=== PATIENT | male | born 1960 | race African-American/Black ===

== ENCOUNTER 2020-11-30 18:27 | Inpatient (IN) | payer MEDICAID ==
[~2020-11-30] VITALS: Ht 182.9 cm; Wt 136.1 kg
[2020-11-30] MEDS ORDERED: HYDRALAZINE 20MG/ML VIAL IV ONE ×2 (20:30→22:30)
[2020-11-30 20:58] LABS: BASOPHILS % 0.7 % (0.0-2.0); EOSINOPHILS % 2.6 % (0.0-5.0); HEMATOCRIT. 42.9 % (42.0-52.0); HEMOGLOBIN. 14.3 g/dL (14.0-18.0); LYMPHOCYTES % 22.6 % (20.0-50.0); MEAN CORPUSCULAR HEMOGLOBIN 25.9 pg (28.0-32.0); MEAN CORPUSCULAR VOLUME 77.7 fL (80.0-94.0); MEAN PLATELET VOLUME 7.7 fl (7.4-10.4); MONOCYTES % 10.6 % (2.0-8.0); NEUTROPHILS % 63.5 % (40.0-76.0); PLATELET 323 x1000/uL (130-400); RED BLOOD CELL COUNT 5.52 mill/uL (4.7-6.1); RED CELL DISTRIBUTION WIDTH 14.2 % (11.6-14.6)
[2020-11-30 21:04] LABS: CHLORIDE 107 mEq/L (98-107)
[2020-11-30] MEDS ORDERED: MORPHINE SULFATE 4 MG/ML CPJ (NOT FOR IM USE) IV ONE (22:30)
[2020-11-30] MEDS ORDERED: ASPIRIN 325MG EC TABLET PO ONE (22:30)
[2020-12-01] MEDS ORDERED: ENOXAPARIN 40MG/0.4ML SYR SUBCUT SCH ×2 (01:15→09:00)
[2020-12-01] MEDS ORDERED: DIPHENHYDRAMINE 50MG/ML VIAL IV PRN (01:15)
[2020-12-01] MEDS ORDERED: ACETAMINOPHEN 325MG TABLET PO PRN (01:15)
[2020-12-01] MEDS ORDERED: ZOLPIDEM TARTRATE 5MG TABLET PO PRN ×2 (01:15→03:45)
[2020-12-01] MEDS ORDERED: HYDRALAZINE 20MG/ML VIAL IV PRN (01:15)
[2020-12-01] MEDS ORDERED: ONDANSETRON HCL 4MG/2ML INJ IV PRN (01:15)
[2020-12-01] MEDS ORDERED: LORAZEPAM 1MG TABLET PO PRN (03:45)
[2020-12-01] MEDS: SODIUM CHLORIDE 0.9% INJ 3ML FLUSH IVF SCH ×3 (05:00→22:00)
[2020-12-01] MEDS: CLONIDINE 0.2MG TABLET PO PRN ×2 (05:01→20:40)
[2020-12-01 05:42] LABS: CHLORIDE 107 mEq/L (98-107)
[2020-12-01] MEDS: ACETAMINOPHEN 325MG TABLET PO PRN ×2 (07:10→20:40)
[2020-12-01] MEDS: AMLODIPINE 10MG TABLET PO SCH (08:53)
[2020-12-01] MEDS: LOSARTAN POTASSIUM 100 MG TABLET PO SCH (09:28)
[2020-12-01] MEDS: CARVEDILOL 6.25 MG TABLET PO SCH ×2 (09:29→20:27)
[2020-12-01 20:00] VITALS: BP 170/93
[2020-12-01 20:02] VITALS: BP 170/93
[2020-12-01] MEDS: ENOXAPARIN 30MG/0.3ML SYR SUBCUT SCH (20:27)
[2020-12-02] VITALS: BP 123/70
[2020-12-02 04:00] VITALS: BP 130/77
[2020-12-02] MEDS: SODIUM CHLORIDE 0.9% INJ 3ML FLUSH IVF SCH ×2 (05:36→17:47)
[2020-12-02 08:10] VITALS: BP 152/96
[2020-12-02] MEDS: LOSARTAN POTASSIUM 100 MG TABLET PO SCH (09:06)
[2020-12-02] MEDS: CARVEDILOL 6.25 MG TABLET PO SCH (09:06)
[2020-12-02] MEDS: AMLODIPINE 10MG TABLET PO SCH (09:06)
[2020-12-02] MEDS: ENOXAPARIN 30MG/0.3ML SYR SUBCUT SCH (09:07)
[2020-12-02 12:15] VITALS: BP 134/81
[2020-12-02 16:07] VITALS: BP 139/66
[2020-12-02 19:49] VITALS: BP 157/98
[2020-12-02] MEDS ORDERED: AMLO10TA4 PO (19:55)
[2020-12-02] MEDS ORDERED: LOSA100T32 PO (19:57)
[2020-12-02] MEDS ORDERED: COR6 PO (19:57)
[2020-12-02] MEDS ORDERED: ENOXAPARIN 40MG/0.4ML SYR SUBCUT SCH (21:00)
== END 2020-12-02 20:25 | disposition home or self-care (01) | DRG 199 ==
LOC: ER 19:37 → 8WST 12-01 00:05 → ENRESERV 12-01 13:47
PROVIDERS: ADMIT Internal Medicine; ATTEND Internal Medicine
DX: I16.1 Hypertensive emergency (principal); I21.A1 Myocardial infarction type 2; N17.0 Acute kidney failure with tubular necrosis; I50.32 Chronic diastolic (congestive) heart failure; I11.0 Hypertensive heart disease with heart failure; E66.01 Morbid (severe) obesity due to excess calories; Z20.822 Contact with and (suspected) exposure to COVID-19; I45.10 Unspecified right bundle-branch block; Z53.9 Procedure and treatment not carried out, unspecified reason; R07.89 Other chest pain; Z79.899 Other long term (current) drug therapy; Z82.49 Family history of ischemic heart disease and other diseases of the circulatory system; Z91.14 Patient's other noncompliance with medication regimen; Z91.19 Patient's noncompliance with other medical treatment and regimen; Z68.41 Body mass index [BMI] 40.0-44.9, adult
CPT/HCPCS: 36415; 71045; 80048; 80053; 83880; 84443; 84484; 85025; 87426; 93005; 93306; 99291; J0360; J1650; J2270; J2405